=== PATIENT | female | born 1955 | race Caucasian/White ===

== ENCOUNTER → 2022-05-13 | Day surgery (SDC) | payer BC | END | disposition home or self-care (01) | LOC: JRADIR 10:38 | PROVIDERS: ATTEND Internal Medicine Endocrinology, Diabetes & Metabolism | PROC: 0G9G3ZX Drainage of Left Thyroid Gland Lobe, Percutaneous Approach, Diagnostic (ICD-10-PCS; principal; 2022-05-13) | DX: E04.1 Nontoxic single thyroid nodule (principal) | CPT/HCPCS: 10005; 76942; 88173; 88305-TC ==

== ENCOUNTER 2022-12-09 08:12 | Day surgery (SDC) | payer OTHER, BC ==
[2022-12-08 11:58] VITALS: BMI 26.5
[2022-12-09 09:50] VITALS: TEMP 98
[2022-12-09 10:00] VITALS: BP 110/74; PULSE 73; RESP 19
== END 2022-12-09 10:01 | disposition home or self-care (01) ==
LOC: FASU-ENDO 08:12
PROVIDERS: ATTEND Internal Medicine Gastroenterology
PROC: 0DBH8ZX Excision of Cecum, Via Natural or Artificial Opening Endoscopic, Diagnostic (ICD-10-PCS; 2022-12-09)
PROC: 06LY8CC Occlusion of Hemorrhoidal Plexus with Extraluminal Device, Via Natural or Artificial Opening Endoscopic (ICD-10-PCS; principal; 2022-12-09 09:16)
DX: Z12.11 Encounter for screening for malignant neoplasm of colon (principal); D12.0 Benign neoplasm of cecum; K57.30 Diverticulosis of large intestine without perforation or abscess without bleeding; Z83.71 Family history of colonic polyps